=== PATIENT | female | born 1950 | race Caucasian/White ===

== ENCOUNTER 2019-01-22 21:15 | Observation (INO) | payer MEDICARE ==
[~2019-01-22] VITALS: Ht 160 cm; Wt 75.2 kg
[2019-01-22 22:14] LABS: BASOPHILS ABSOLUTE AUTO 0.02 K/mm3 (0.00-0.23); BASOPHILS PERCENT AUTO 0 % (0-2); EOSINOPHILS ABSOLUTE AUTO 0.14 K/mm3 (0.00-0.68); EOSINOPHILS PERCENT AUTO 2 % (0-6); Hematocrit 35.5 % (33.0-51.0); Hemoglobin 11.6 g/dL (11.5-16.0); IMMATURE GRAN ABSOLUTE AUTO 0.01 K/mm3 (0.00-0.10); IMMATURE GRAN PERCENT AUTO 0 % (0-1); LYMPHOCYTES ABSOLUTE AUTO 2.75 K/mm3 (0.84-5.20); LYMPHOCYTES PERCENT AUTO 47 % (21-46); MONOCYTES ABSOLUTE AUTO 0.48 K/mm3 (0.16-1.47); MONOCYTES PERCENT AUTO 8 % (4-13); Mean Corpuscular HGB 30.1 pg (26.0-34.0); Mean Corpuscular HGB Conc 32.7 g/dL (31.5-36.5); Mean Corpuscular Volume 92 fL (80-100); Mean Platelet Volume 10.7 fL (9.1-12.4); NEUTROPHILS ABSOLUTE AUTO 2.47 K/mm3 (1.96-9.15); NEUTROPHILS PERCENT AUTO 42 % (41-73); Platelet Count 245 K/mm3 (150-400); RDW Coefficient Variation 13.3 % (11.7-14.2); RDW Standard Deviation 45.2 fL (35.1-46.3); Red Blood Cell Count 3.86 M/mm3 (3.80-5.20); White Blood Cell Count 5.87 K/mm3 (4.00-11.30)
[2019-01-22 22:29] LABS: Acetaminophen, Random 12.4 ug/mL (10.0-30.0); Alanine Aminotransfer (ALT/SGP 27 U/L (12-78); Albumin, Blood 3.5 g/dL (3.4-5.0); Albumin/Globulin Ratio 1.1 (0.8-1.8); Alk Phos 75 U/L (50-136); Anion Gap 7 mmol/L (6-16); Aspartate Aminotrans (AST/SGOT 20 U/L (12-37); Bilirubin, Total 0.2 mg/dL (0.1-1.0); Blood Urea Nitrogen 11 mg/dL (8-24); Bun/Creatinine Ratio 14.5 (12.0-20.0); CO2, Blood 25 mmol/L (21-32); Calcium, Blood 8.5 mg/dL (8.5-10.1); Chloride, Blood 107 mmol/L (98-108); Creatinine, Blood 0.76 mg/dL (0.40-1.00); Ethanol (Alcohol), Blood, Med 23 mg/dL; Globulin, Blood 3.2 g/dL (2.2-4.0); Glomerular Filtration Rate >60 (60-); Glucose, Blood 91 mg/dL (70-99); Potassium, Blood 3.8 mmol/L (3.5-5.5); Salicylate <1.7 mg/dL (2.8-20.0); Sodium, Blood 139 mmol/L (136-145); Thyroxine (T4) 8.1 ug/dL (4.8-13.9); Total Protein, Blood 6.7 g/dL (6.4-8.2)
[2019-01-22 23:49] LABS: Source, Urine Clean Catch
[2019-01-22 23:53] LABS: Bilirubin, Urine Neg (Neg); Blood, Urine Neg (Neg); Glucose Qualitative, Urine Neg (Neg); Ketones, Urine Neg (Neg); Leukocyte Esterase, Urine 2+ (Neg); Nitrite, Urine Neg (Neg); Protein, Urine Neg (Neg); Urobilinogen, Urine NORM (Normal); pH, Urine 6.5 (5.0-8.0)
[2019-01-22 23:56] LABS: Appearance, Urine Clear (Clear); Color, Urine Yellow (P-Yellow)
[2019-01-22 23:59] LABS: Bacteria Rare /hpf; Red Blood Cells, Urine Not Seen /hpf (0-2); Squamous Epithelial Cells Not Seen /hpf (Few); White Blood Cells, Urine 0-2 /hpf (0-5)
[2019-01-23 00:09] LABS: U Amphetamine Screen Not Detected; U Barbituate Screen Not Detected; U Benzodiazapine Screen Not Detected; U Buprenorphine Screen Not Detected; U Cannabinoids Screen Not Detected; U Cocaine Screen Not Detected; U Methadone Screen Not Detected; U Methamphetamine Screen Not Detected; U Opiates Screen Not Detected; U Oxycodone Screen Not Detected; U Phencyclidine Screen Not Detected; U Propoxyphene Screen Not Detected
[2019-01-23] MEDS ORDERED: Gabapentin600 MG PO (00:42)
[2019-01-23] MEDS ORDERED: LOSARTAN POTAS100 MG PO (00:42)
[2019-01-23] MEDS ORDERED: PARO20 PO (00:42)
[2019-01-23 02:18] LABS: Anion Gap 6 mmol/L (6-16); Blood Urea Nitrogen 11 mg/dL (8-24); Bun/Creatinine Ratio 17.4 (12.0-20.0); CO2, Blood 27 mmol/L (21-32); Calcium, Blood 8.5 mg/dL (8.5-10.1); Chloride, Blood 109 mmol/L (98-108); Creatinine, Blood 0.63 mg/dL (0.40-1.00); Glomerular Filtration Rate >60 (60-); Glucose, Blood 100 mg/dL (70-99); Potassium, Blood 3.9 mmol/L (3.5-5.5); Sodium, Blood 142 mmol/L (136-145)
--- NOTE | 2019-01-23 06:35 | NUR ---
ADMIT NOTE/SHIFT SUMMARY PATIENT ADMITTED EARLIER THIS SHIFT. PATIENT PLEASENT AND COOPERATIVE SO FAR THROUGHOUT THE NIGHT. SUICIDE PERCAUTIONS IN PLACE. REMOTE MONITORING HAS BEEN CHECKED IN WITH AND MONITORING PATIENT. PATIENT PROVIDED WITH EDUCATION ON REMOTE MONITORING. PATIENT STATED THAT SHE WAS TRYING TO KILL HERSELF LAST NIGHT WHEN SHE TOOK ALL THE PILLS. WHEN ASKED IF SHE WAS STILL HAVING SUICIDAL THOUGHTS PATIENT STATED, "I DON'T KNOW, I JUST FEEL NUMB." SHE SAID THAT SHE HAS ATTEMPTED SUICIDE IN THE PAST TOO. PATIENT STATED THAT THINGS AT HOME HAVE BEEN DIFFICULT LATELY WITH HER , HOWEVER SHE STATED SHE DOES FEEL SAFE AT HOME. PATIENT STATED THIS MORNING THAT SHE HAS BEEN CAT NAPPING THROUGHOUT MOST OF THE NIGHT SO FAR. IV FLUIDS RUNNING PER ORDERS. VITAL SIGNS CHARTED. POISON CONTROL CALLED TO CHECK IN ON PATIENT AND WAS UPDATED. PATIENT CURRENTLY RESTING IN BED AND DENIES ANY NEEDS. WILL CONTINUTE TO MONITOR PATIENT AND REPORT TO ONCOMING RN.
--- NOTE | 2019-01-23 07:58 | NUR ---
ASSUMMED CARE OF PT AT APPROX 0700. PT RESTIING IN BED. PT A&Ox4, FLAT AND WITHDRAWN. ANSWER QUESTION APPROPRIATELY. PT DENIES PAIN, SOB AND N/V. DENIES DIZZINESS, LIGHTHEADEDNESS AND CHEST PAIN/PRESSURE. TELE SB WITH BBB AT 55. LS CLEAR, ON RA, BREATHING EVEN AND UNLABORED. VSS. VERIFIED WITH SI MONITOR, CAMERA IS ON IN ROOM. WILL CONTINUE TO MONITOR.
--- NOTE | 2019-01-23 11:41 | NUR ---
The pt gave her verbal consent for a telepsych consultation. The appointment was made, for [address] Deepti Nash.
--- NOTE | 2019-01-23 12:49 | NUR ---
DR PEÑA FROM TELE PSYCH HAD APPOINTMENT EARLY WITH PATIENT. NOTIFIED BY DR BALTAZAR TO CHECK WITH POISON CONTROL TO SEE IF IT IS SAFE TO TAKE OFF TELE
--- NOTE | 2019-01-23 16:02 | NUR ---
PT RESTING IN BED APPEARS TO BE SLEEPING. SPOUSE AND SON NO LONGER AT BEDSIDE. VSS. WHEN ASKED IF SHE WOULD REACT THE SAME AGAIN IN THE SAME SITUATION, THE PT STATES "I DONT THINK SO, I WOULD GO TO ANOTHER ROOM AND IF HE DOES NOT LEAVE ME ALONE I CAN GET IN MY CAR AND GO TO [place] TO A [place]EL FOR A COUPLE DAYS." PT STATES THAT HER AND SPOUSE HAVE BEEN GETTING INTO ARGUEMENTS OVER THE LAST 8 MONTHS. "HE HAS BEEN ACCUSSING ME OF THING THAT HAVE NEVER HAPPENED. HE THINKS I HAVE BEEN LIEING TO HIM ABOUT WHERE I AM WHEN IM NOT WITH HIM.". WHEN ASKED IF SHE FEELS SAFE GOING HOME PT STATES "YES, HE HAS NEVER HURT ME." WILL CONTINUE TO MONITOR.
--- NOTE | 2019-01-23 17:22 | NUR ---
SHIFT SUMMARY PT A&Ox4. FLAT AND WITHDRAWN AT TIMES. PT ON SI HOLD FOR FOR SSRI OD. PT RESTING IN BED DURING SHIFT, UP SBA TO BATHROOM WITH 1:1. PT REPORTS VALENZUELA, DENIES NEEDS FOR MEDCATIONS, REQUESTS TO REST. PT DENIES SOB, NAUSEA, AND CHEST PAIN/PRESSURE. TELE SB/SR WITH BBB 50-60'S. VSS. NO OTHER ACUTE CHANGES NOTED DURING SHIFT. WILL CONTINUE TO MONITOR UNTIL REPORT GIVEN TO ONCOMING RN.
--- NOTE | 2019-01-23 19:31 | NUR ---
TITO VERIFIED WITH ROCIO FROM REMOTE MONITORING THAT THEY ARE ABLE TO VIEW PATIENT AND ROOM WELL AT THIS TIME.
--- NOTE | 2019-01-23 22:14 | NUR ---
UPDATE THIS RN FOUND PATIENT WALKING DOWN THE HALLWAY, A MOMENT AFTER FINDING THE PATIENT IN THE HALLWAY REMOTE MONITORING CALLED RN TO NOTIFY THAT PATIENT WAS NO LONGER VISIBLE ON THE CAMERA IN PATIENT ROOM. PATIENT STATED THAT SHE WAS ON HER WAY TO THE BATHROOM. PATIENT STATED THAT SHE HAD CALLED TO USE THE RESTROOM BUT STAFF WAS NOT ABLE TO GET INTO THE ROOM FAST ENOUGH AND SHE REALLY NEEDED TO GO. SHE SAID SHE NEEDED TO FIND A DIFFERENT BATHROOM SINCE HERS IS LOCKED DUE TO SI PEPERCAUTIONS. PATIENT AGREEABLE ABOUT RETURNING TO HER ROOM AND USING HER OWN BATHROOM. PATIENT STATED THAT SHE WILL USE THE CALL LIGHT AND WILL DO HER BEST TO WAIT FOR STAFF. STAFF INFORMED PATIENT THAT WE WILL DO OUR BEST ABOUT BEING MORE PROMPT WITH RESPONDING TO THE CALL LIGHT OR ENSURING THAT, IF RN AND BAGGAGE SCREENER ARE BUSY, THEY WILL LOCATE A FREE STAFF MEMBER TO ASSIST HER. PATIENT STATED THAT SOUNDED FINE AND SHE WILL DO HER BEST TO CALL AND WAIT FOR STAFF ASSISTANCE BEFORE USING THE RESTROOM. CALL LIGHT WITHIN REACH.
--- NOTE | 2019-01-24 06:36 | NUR ---
SHIFT SUMMARY PATIENT HAS BEEN PLEASENT AND COOPERATIVE THROUGHOUT THE REST OF THE NIGHT. PATIENT HAS USED THE CALL LIGHT APPROPRIATELY AND HAS WAITED FOR STAFF ASSISTANCE TO USE THE BATHROOM EACH TIME SINCE. PATIENT APPEARED TO NAP ON AND OFF THROUGHOUT MOST OF THE NIGHT. THE ENVIRONMENTAL RISK ASSESSMENT FORM REVIEWED BY THIS RN AT THE BEGINNING OF THE SHIFT. PATIENT CURRENTLY RESTING IN BED AT THIS TIME. REMOTE MONITORING IN PLACE. WILL CONTINUE TO MONITOR PATIENT AND REPORT TO ONCOMING RN.
--- NOTE | 2019-01-24 10:51 | NUR ---
RECEIVED PHONE CALL FROM POISON CONTROL, SCOTT ASKED FOR A CURRENT SET OF VITALS AND IF ANY OTHER CHANGES ON TELEMETRY. PT HAS BEEN CONTINUALLY IN SB WITH A BBB IN 50'S. POISON CONTROL IS SIGNING OFF ON THE CASE, IF ANY CONCERNS OR COMPLICATIONS FEEL FREE TO CALL THEM BACK.
--- NOTE | 2019-01-24 15:57 | NUR ---
PT HAD TELEPSYCH TODAY AND PSYCH AND DR. ROMERO SIGNED OFF ON PT CARE AND ORDER PLACED FOR DISCHARGE.
== END 2019-01-24 13:09 | disposition home or self-care (01) ==
LOC: ER 21:15 → PCU 21:16
PROVIDERS: Emergency Medicine; ADMIT Hospitalist
DX: T43.222A Poisoning by selective serotonin reuptake inhibitors, intentional self-harm, initial encounter (principal); F32.9 Major depressive disorder, single episode, unspecified; I10 Essential (primary) hypertension; G62.9 Polyneuropathy, unspecified; Z90.49 Acquired absence of other specified parts of digestive tract; Z79.899 Other long term (current) drug therapy
CPT/HCPCS: 80048; 80053; 81001; 84436; 84443; 85025; 87086; 93005; 93010; 96361; 99285-25; G0378; G0480; J7030